=== PATIENT | female | born 1960 | race Caucasian/White ===

== ENCOUNTER 2019-02-16 13:48 | Day surgery (SDC) | payer OTHER ==
[2019-02-15 10:05] VITALS: BMI 34.3
[2019-02-16] MEDS ORDERED: MIDAZOLAM HCL 2 MG/2 ML SINGLE DOSE VIAL ONE (14:41)
--- NOTE | 2019-02-16 14:48 | HP ---
Admitting History and Physical - Admission Chief Complaint: Abnormal vaginal bleeding History of Present Illness: 58 yo Para 2, with 2 previous c-sections, is pre op for D&C hysteroscopy. She's on Losartan for hypertension and has been experiencing vaginal spotting. History Source: Patient Limitations to Obtaining History: No Limitations - Past Medical History ...: No ...Para: 2 - Past Surgical History Past Surgical History: Yes: Additional Past Surgical History: Knee surgery - Smoking History Smoking history: Never smoked Have you smoked in the past 12 months: No - Alcohol/Substance Use Hx Alcohol Use: No Home Medications - Allergies Allergies/Adverse Reactions: Allergies Allergy/AdvReac Type Severity Reaction Status Date / Time No Known Allergies Allergy Verified 02/15/19 09:52 - Home Medications Home Medications: Ambulatory Orders Losartan Potassium 25 mg PO DAILY 02/15/19 Metformin HCl [Metformin HCl ER] 500 mg PO DAILY 02/15/19 Family Disease History - Family Disease History Family History: Unable to Obtain Review of Systems - Review of Systems Constitutional: reports: No Symptoms Eyes: reports: No Symptoms HENT: reports: No Symptoms Neck: reports: No Symptoms Cardiovascular: reports: No Symptoms Respiratory: reports: No Symptoms Gastrointestinal: reports: No Symptoms Genitourinary: reports: Vaginal Bleeding Breasts: reports: No Symptoms Reported Musculoskeletal: reports: No Symptoms Integumentary: reports: No Symptoms Neurological: reports: No Symptoms Endocrine: reports: No Symptoms Hematology/Lymphatic: reports: No Symptoms Psychiatric: reports: No Symptoms Pain Intensity: 0 Physical Examination Vital Signs: Vital Signs Temperature 97.7 F 02/16/19 14:10 Pulse Rate 79 02/16/19 14:10 Respiratory Rate 18 02/16/19 14:10 Blood Pressure 122/74 02/16/19 14:10 O2 Sat by Pulse Oximetry (%) 95 02/16/19 14:10 Constitutional: Yes: Well Nourished Eyes: Yes: Conjunctiva Clear HENT: Yes: Atraumatic Neck: Yes: Supple Cardiovascular: Yes: Regular Rate and Rhythm Respiratory: Yes: Regular Gastrointestinal: Yes: Normal Bowel Sounds Breast(s): Yes: WNL Musculoskeletal: Yes: WNL Extremities: Yes: WNL Neurological: Yes: Alert, Oriented ...Motor Strength: WNL Psychiatric: Yes: Alert, Oriented Problem List - Problems (1) Postmenopausal bleeding Code(s): N95.0 - POSTMENOPAUSAL BLEEDING Assessment/Plan Post menopausal bleeding Pre op for D&C hysteroscopy Consent signed Anesthesia to see patient
[2019-02-16] MEDS ORDERED: SUCCINYLCHOLINE CHLORIDE 200 MG/10 ML SYRINGE ONE (14:51)
[2019-02-16] MEDS ORDERED: PROPOFOL 20 ML ONE (14:51)
[2019-02-16] MEDS ORDERED: DEXAMETHASONE SOD PHOSPHATE 4 MG/1 ML VIAL ONE (15:19)
[2019-02-16] MEDS ORDERED: KETOROLAC TROMETHAMINE 30 MG/1 ML VIAL ONE (15:19)
[2019-02-16] MEDS ORDERED: ONDANSETRON 4 MG/2 ML VIAL IVPUSH PRN (15:43)
[2019-02-16] MEDS ORDERED: oxyCODONE HCL 5 MG TABLET PO PRN (15:43)
[2019-02-16] MEDS ORDERED: LACTATED RINGERS SOLUTION 1,000 ML IV SCH (15:45)
--- NOTE | 2019-02-16 16:31 | OP ---
Operative Note - Note: Operative Date: 02/16/19 Pre-Operative Diagnosis: Postmenopausal bleeding Operation: D&C hysteroscopy attempt Findings: No visualization of cervix Post-Operative Diagnosis: Same as Pre-op Surgeon: Erica Samuel Anesthesia: General Specimens Removed: Endocervical curettings Estimated Blood Loss (mls): 5 Operative Report Dictated: Yes
[2019-02-16 18:17] VITALS: BP 135/80; PULSE 74; TEMP 97.8
--- NOTE | 2019-02-17 02:15 | OP ---
DATE OF OPERATION: 02/16/2019 PREOPERATIVE DIAGNOSIS: Postmenopausal bleeding. POSTOPERATIVE DIAGNOSIS: Postmenopausal bleeding. PROCEDURE: Dilation and curettage, hysteroscopy attempt. SURGEON: Erica Samuel MD ANESTHESIA: General. ESTIMATED BLOOD LOSS: Less than 5 mL. DESCRIPTION OF PROCEDURE: Patient was taken to the operating room where general anesthesia was administered. Patient was then placed in lithotomy position. She was then prepped and draped in the appropriate sterile fashion. A weighted speculum was placed in the vagina. The cervix could not be visualized. The patient was placed in Trendelenburg position. Different maneuvers were done to visualize the cervix. It was very difficult to visualize the cervix. The patient was obese. It was unknown if the patient had hysterectomy, but it looked like there was only the vagina and no cervix. The hysteroscopy could not be performed. A dilation and curettage was performed, which could either be from the cervix or from the vagina, but the specimen was sent to Pathology. When finished, the instruments were removed. The patient was taken out of lithotomy position. She was taken to the PACU in stable condition. PATHOLOGY: Endocervical curettings. ERICA SAMUEL M.D. [id number]
--- NOTE | 2019-02-22 17:47 | PATH ---
Surgical Pathology Report Patient Name: PAWAN COBB [facility]. Rec. #: [id number] /Age/Gender: 1960 (Age: 58) / F Account: [id number] Location: [facility] SUR[facility] Taken: 02/16/2019 Received: 02/17/2019 Reported: 02/22/2019 Physicians: Erica Samuel M.D. Specimen(s) Received ENDOCERVICAL CURETTINGS Clinical History Postmenopausal bleeding Final Diagnosis ENDOCERVICAL CURETTINGS, DILATION AND CURETTAGE: ABUNDANT SQUAMOUS MUCOSA WITH FOCI OF ACUTE AND FOCAL CHRONIC INFLAMMATION. NO DEFINITIVE CERVICAL TISSUE IDENTIFIED. SEE COMMENT. Comment: The squamous mucosa may represent vaginal sampling. Immunohistochemical stains performed at [facility], [place], [place] ([id number]) and interpreted at [facility] for P16 shows patchy staining. Ki-67 utilized to evaluate this case. Suggest clinical correlation. Electronically Signed Penelope Alas M.D. Gross Description Received in formalin labeled "endocervical curettings," is a 0.9 x 0.7 x 0.3 cm aggregate of richardson-brown soft tissue fragments. The formalin is filtered and the specimen is entirely submitted in one cassette. 02/17/201902/17/2019
== END 2019-02-16 17:55 | disposition home or self-care (01) ==
LOC: JASU-SURG 13:48
PROVIDERS: ATTEND Obstetrics & Gynecology
PROC: 0UDB7ZX Extraction of Endometrium, Via Natural or Artificial Opening, Diagnostic (ICD-10-PCS; principal; 2019-02-16 15:00)
DX: N95.0 Postmenopausal bleeding (principal); E66.9 Obesity, unspecified; E11.9 Type 2 diabetes mellitus without complications; Z79.84 Long term (current) use of oral hypoglycemic drugs
CPT/HCPCS: 82962; 88305-TC; 94760